=== PATIENT | female | born 1935 | race Caucasian/White ===

== ENCOUNTER → 2016-06-17 16:39 | Outpatient (CLI) | payer MEDICARE, OTHER ==
[2014-04-06 08:10] VITALS: BMI 35.3
[~2016-06-17 16:39] MED LIST: AMBIEN10 MG PO; ANTIOXIDENT; BAYER CHEWABLE81 MG PO; BENADRYL25 MG PO; BETAPACE 80 MG80 MG PO; BIOTIN5 MG PO; CALTRATE-600600 MG PO; COUMADIN5 MG PO; COUMADIN7.5 MG; ENDOCET 10-3251 TAB PO; FEMARA2.5 MG PO; FOLIC ACID1 MG; FOLIC ACID1 MG PO; GLUCAGON1 MG/KIT IM; GLUCAGON1 MG/KIT SQ; GLUCOPHAGE500 MG PO; HUMALOG 30100 UNITS/; HUMALOG 30100 UNITS/ SC; HUMALOG MIX 50/53 ML SQ; INSTA-GLUCOSE31 GM PO; LANTUS SOL100 UNIT/1; LANTUS SOL100 UNIT/1 SC; LANTUS SOL100 UNIT/1 SQ; LASIX40 MG PO; METHOTREXATE2.5 MG PO; MILK OF MAGNESI30 ML PO; MIRALAX17 GM PO; MIRAPEX0.5 MG PO; NORVASC5 MG PO; NYSTATIN60 GM TP; OSCIMIN0.125 M1 PO; PEPCID20 MG PO; PRAVACHOL40 MG PO; PREDNISONE1 MG; PREDNISONE1 MG PO; PRINIVIL20 MG PO; SALINE FLUSH10 ML IV; STERAPRED 5MG 125 MG PO; SYNTHROID150 MCG PO; SYNTHROID25 MCG PO; TYLENOL 8 HOUR650 MG PO; VITAMIN D31000 UNI2 PO; VYTORIN 10-20 M1 TAB; VYTORIN 10-20 M1 TAB PO; ZOFRAN4 MG PO; ZYLOPRIM100 MG PO; ZYLOPRIM300 MG PO; [UNRECOGNIZED DRUG - OTHER]
== END | disposition home or self-care (01) ==
LOC: D.MAMMO 05-28 15:15
DX: Z85.3 Personal history of malignant neoplasm of breast (principal)

== ENCOUNTER 2016-06-25 06:02 | Outpatient (CLI) | payer MEDICARE, OTHER ==
[~2016-06-25] VITALS: Ht 161.3 cm; Wt 89.4 kg
[2016-06-25 04:32] LABS: BASOPHILS 0 % (0.0-2.0); EOSINOPHILS 1.4 % (0-7); HEMATOCRIT 43.6 % (36.0-48.0); HEMOGLOBIN 14.3 g/dL (12-16); IMMATURE GRANULOCYTES 0.3 % (0-5); LYMPHOCYTES 2.5 % (15-50); MCH 32.9 pg (26.0-34.0); MCHC 32.8 g/dL (31.0-37.0); MCV 100.2 fL (80.0-100.0); MEAN PLATELET VOLUME 10.1 fL (7.4-10.4); MONOCYTES 4.5 % (2-11); NEUTROPHILS 91.3 % (40-80); PLATELET COUNT 243 10x3/uL (130-400); RBC 4.35 10x6/uL (4.00-5.40); RDW 16.7 % (11.5-14.5); WBC 8.9 10x3/uL (4.8-10.8)
[2016-06-25 04:53] LABS: ALBUMIN 3.8 g/dL (3.4-5.0); ANION GAP 15.6 mmol/L (8-16); BILIRUBIN - TOTAL 0.7 mg/dL (0.2-1.3); CALCIUM 9.6 mg/dL (8.5-10.1); CARBON DIOXIDE 26.1 mmol/L (21.0-32.0); CREATININE - SERUM 1.7 mg/dL (0.6-1.3); POTASSIUM - SERUM 4.7 mmol/L (3.5-5.1); PROTEIN - SERUM 7.4 g/dL (6.4-8.2)
[~2016-06-25 06:02] MED LIST changes: -AMBIEN10 MG PO; -FEMARA2.5 MG PO; -MIRALAX17 GM PO; -MIRAPEX0.5 MG PO; -PRAVACHOL40 MG PO; -SYNTHROID150 MCG PO; -ZYLOPRIM300 MG PO
[2016-06-25 06:35] LABS: INR 1.61 (0.85-1.17)
[2016-06-25 06:36] LABS: PROTIME 19.1 SECONDS (11.6-15.0)
[2016-06-25] MEDS ORDERED: PREDNISONE1 MG PO (08:05)
[2016-06-25] MEDS ORDERED: SYNTHROID150 MCG PO (08:07)
[2016-06-25] MEDS ORDERED: PRAVACHOL40 MG PO ×2 (08:09)
[2016-06-25] MEDS ORDERED: ZYLOPRIM300 MG PO (08:10)
[2016-06-25] MEDS ORDERED: FEMARA2.5 MG PO (08:10)
[2016-06-25] MEDS ORDERED: MIRALAX17 GM PO (08:15)
[2016-06-25] MEDS ORDERED: AMBIEN10 MG PO (08:17)
[2016-06-25 08:20] VITALS: BP 86/41
[2016-06-25 09:11] VITALS: BP 86/41; BMI 34.4
[2016-06-25 11:04] VITALS: Ht 161.3 cm; Wt 89.4 kg
[2016-06-25 12:07] VITALS: BP 118/93
[2016-06-25 16:07] VITALS: BP 88/50
[2016-06-25 19:00] VITALS: BP 91/52
--- NOTE | 2016-06-25 19:48 | NUR ---
ASSESSMENT COMPLETE, RESTING ON LEFT SIDE. RESPERATIONS EVEN AND UNLABORED. IV TO RIGHT HAND WITH NS INFUSING AT 125. PT DENIES PAIN OR NEEDS, BED LOW, CL IN REACH.
[2016-06-25] MEDS ORDERED: MIRAPEX0.5 MG PO (20:28)
--- NOTE | 2016-06-25 21:03 | NUR ---
SPOKE WITH DR RODGERS, ASKED IF PT CAN CONTINUE HER HOME MEDICATION OF MIRAPEX. ORDERS GIVEN TO CONTINUE MIRAPEX 0.5 MG AT HS. 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 NO ORDERS GIVEN TO CHANGE IV FLUIDS, BUT DR RODGERS STATED THAT HE WILL RECHECK LABS IN THE MORNING.
--- NOTE | 2016-06-25 22:22 | NUR ---
PT ROUNDED ON NO DISTRESS OBSERVED CALL LIGHT IN REACH SRX2 BED LOW AND LOCKED CALL LIGHT IN REACH SRX2 WILL MONITOR
--- NOTE | 2016-06-25 22:36 | NUR ---
HS MEDS GIVEN, UP WITH ASSIST TO BR. URINE SPECIMINE COLLECTED AND TAKEN TO LAB. REPOSITINED IN BED FOR COMFORT. WILL CONT TO MONITOR.
[2016-06-25 22:49] LABS: APPEARANCE CLEAR (CLEAR); BILIRUBIN NEGATIVE (NEGATIVE); COLOR YELLOW (YELLOW); GLUCOSE NEGATIVE (NEGATIVE); KETONE NEGATIVE (NEGATIVE); LEUKOCYTE ESTERASE NEGATIVE (NEGATIVE); NITRITE NEGATIVE (NEGATIVE); PROTEIN NEGATIVE (NEGATIVE); SPECIFIC GRAVITY 1.015 (1.005-1.020); UROBILINOGEN NORMAL (NORMAL)
[2016-06-26] VITALS: BP 94/55
--- NOTE | 2016-06-26 02:22 | NUR ---
RESTING WITH EYES CLOSED, RESPERATIONS EVEN, NO S/S DISTRESS NOTED.
[2016-06-26 04:00] VITALS: BP 96/60
--- NOTE | 2016-06-26 04:36 | NUR ---
UP WITH ASSIST TO BR.
[2016-06-26 05:12] LABS: BASOPHILS 0.2 % (0.0-2.0); EOSINOPHILS 0 % (0-7); HEMATOCRIT 34.9 % (36.0-48.0); IMMATURE GRANULOCYTES 0.2 % (0-5); LYMPHOCYTES 7.3 % (15-50); MCH 32.3 pg (26.0-34.0); MCHC 32.1 g/dL (31.0-37.0); MCV 100.6 fL (80.0-100.0); MEAN PLATELET VOLUME 9.5 fL (7.4-10.4); MONOCYTES 5.9 % (2-11); NEUTROPHILS 86.4 % (40-80); RDW 17.1 % (11.5-14.5)
[2016-06-26 05:17] LABS: HEMOGLOBIN 11.2 g/dL (12-16); PLATELET COUNT 181 10x3/uL (130-400); RBC 3.47 10x6/uL (4.00-5.40); WBC 5.6 10x3/uL (4.8-10.8)
[2016-06-26 05:26] LABS: ANION GAP 13.4 mmol/L (8-16); CALCIUM 7.8 mg/dL (8.5-10.1); CARBON DIOXIDE 22.4 mmol/L (21.0-32.0); CREATININE - SERUM 1.5 mg/dL (0.6-1.3); MAGNESIUM - SERUM 1.6 mg/dL (1.8-2.4)
[2016-06-26 05:31] LABS: POTASSIUM - SERUM 3.8 mmol/L (3.5-5.1)
[2016-06-26 05:39] LABS: INR 2.28 (0.85-1.17); PROTIME 25.3 SECONDS (11.6-15.0)
[2016-06-26 07:48] VITALS: BP 103/60
--- NOTE | 2016-06-26 08:59 | NUR ---
PT IS ALERT. ASSESSMENT DONE PER FLOWSHEET. NO OTHER NEEDS AT THIS TIME. WILL CONTINUE TO MONTIOR.
--- NOTE | 2016-06-26 09:33 | NUR ---
Patient Name: KAY LOZOYA Admission Status: ER Accout number: [id number] Admission Date: 06-25-2016 : 1935 Admission Diagnosis: Attending: [facility] Current LOS: 1 Anticipated DC Date: 06-26-2016 Planned Disposition: Home Primary Insurance: MEDICARE A & B Discharge Planning Comments: * Is the patient Alert and Oriented? Yes 0 * How many steps to enter\exit or inside your home? ELEVATOR 0 * PCP DR. MOON 0 * Pharmacy [facility] 0 * Preadmission Environment Home with Family 0 * ADLs Independent 0 * Equipment Walker 0 * Other Equipment NO MEDICAL EQUIPMENT PROVIDER PREFERENCE 0 * List name and contact numbers for known caregivers / representatives who currently or will assist patient after discharge: DR. VLADIMIR TORRES, DTR, 0 * Community resources currently utilized None 0 * Please name any agencies selected above. NONE 0 * Additional services required to return to the preadmission environment? No 0 * Can the patient safely return to the preadmission environment? Yes 0 * Has this patient been hospitalized within the prior 30 days at any hospital? No 0 CM MET WITH PT IN ROOM TO DISCUSS DISCHARGE PLANNING AND NEEDS. PT REPORTS LIVING AT HOME INDEPENDENTLY WITH SPOUSE IN HOME OF ADULT DAUGHTER. PT HAS A WALKER AND NO MEDICAL EQUIPMENT PROVIDER PREFERENCE. PT HAS NO OUTSIDE SERVICES ASSISTING IN THE HOME. CM DISCUSSED AVAILABILITY OF HOME HEALTH, REHAB SERVICES AND MEDICAL EQUIPMENT. PT DENIES DISCHARGE NEEDS, REPORTS HER DAUGHTER WILL PICK HER UP FOR DISCHARGE HOME. IMPORTANT MESSAGE FROM MEDICARE PROVIDED AND EXPLAINED. Electric Engine Mechanic: Canelo Jaeger
--- NOTE | 2016-07-09 17:39 | HP ---
PATIENT: KAY LOZOYA MEDICAL RECORD: [id number] ACCOUNT: [id number] LOCATION:[facility] : 33 ADMISSION DATE: 06/25/16 HISTORY AND PHYSICAL EXAMINATION DATE OF ADMISSION: 06/25/2016 CHIEF COMPLAINT: Nausea and vomiting. HISTORY OF PRESENT ILLNESS: The patient is an 80-year-old female whose apparently was sick and Friday. He had nausea and vomiting that soon resolved. The patient states she began having nausea yesterday, had numerous episodes of nausea, vomiting, diarrhea throughout the night, presented to the Emergency Room where she was found to be somewhat dehydrated and we felt the patient should be admitted. PAST MEDICAL HISTORY: Her past history is significant that she has had lumbar radiculopathy. She has also had gastroesophageal reflux, arthritis in the knees, and postmenopausal syndrome. 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 PAST SURGICAL HISTORY: She has had a left lumpectomy secondary to breast cancer. She has had right knee replacement, cataract surgery in 2008, total hip resurfacing of the right hip. She has had a cholecystectomy, partial thyroidectomy, hemorrhoidectomy, and hysterectomy. FAMILY HISTORY: Mother had malignant neoplasm, type unknown. Brother had liver cancer. Mother also had a cerebrovascular accident. Father had COPD. MEDICATIONS: Include Coumadin 5 mg 1 p.o. q. day, vitamin D 50,000 units weekly, tizanidine 4 mg, sotalol 80 mg p.o. b.i.d., prednisone 3 mg p.o. q. day, pravastatin 40 mg once a day, Mirapex 0.25, one p.o. q.h.s., Pepcid 20 mg p.o. b.i.d., oxycodone 10/325, one p.o. t.i.d., MiraLax p.r.n., methotrexate 2.5, five tablets every Friday, lisinopril 20 mg, 1 p.o. b.i.d., levothyroxine 150 mcg once a day, Lotronex 2.5 mg daily, Lantus SoloSTAR 100 units per mL, 20 units q.h.s. She is on Humalog sliding scale as well. Lasix 40 mg, 1 p.o. q. day, folic acid 1 mg once a day, aspirin 81 mg once a day., Ambien 10 mg p.o. q.h.s. p.r.n. insomnia, and allopurinol 300 mg, 1 p.o. q. day. ALLERGIES: CEFTIN. HABITS: Nonsmoker, nondrinker. 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 She is . She denies any ethanol, tobacco use or abuse. REVIEW OF SYSTEMS: CONSTITUTIONAL: She denies any headaches, seizure or syncope. Denied change in visual or auditory acuity. PULMONARY: She denies shortness of breath, cough, congestion, history of asthma or bronchitis. CARDIOVASCULAR: No chest pain, palpitation, PND, or orthopnea. GASTROINTESTINAL: As stated above. GENITOURINARY: No urgency, frequency, or dysuria. HISTORY AND PHYSICAL [id number] DARELLKAY RENO PHYSICAL EXAMINATION: GENERAL: Well-nourished, well-developed female, who is acutely ill. VITAL SIGNS: Her temperature was 100.6, her respirations were 19, her pulse was 87 and her blood pressure 106/63, and O2 sat 97%. HEENT: Her head is normocephalic. No lesions. Ears: TMs clear. Eyes: Pupils equal, round and reactive to light. Extraocular movements intact. Nasal cavity, oral cavity, oropharynx clear. NECK: Supple. There is no adenopathy. HEART: Has a regular rhythm. No murmurs, gallops or rubs. LUNGS: Clear. ABDOMEN: Soft. Bowel sounds are positive. No organomegaly. EXTREMITIES: Upper and lower extremities have good strength, good range of motion. LABORATORY DATA: The patient initially had a white count 8.9, hemoglobin 14.3, hematocrit 43.6, and her platelets were 243. She had a sodium 136, potassium 4.7, chloride is 99, BUN is 35, creatinine 1.7, and glucose of 171. Amylase and lipase were all normal. Urinalysis canceled. INR 1.16. ASSESSMENT: 1. Probable gastroenteritis with nausea and vomiting. 2. Mild dehydration. 3. Hypothyroidism. 4. History of Guillain-[place]. 5. Polymyalgia rheumatica, history of breast cancer, diabetes mellitus, and hypertension. PLAN: The patient will be admitted, given IV hydration as well as antiemetics, continue all of her current medication. We will check stool for CDT, repeat CBC, BMP and INR in the a.m. TRANSINT:[id number] Voice Confirmation ID: [id number] DOCUMENT ID: [id number] JOSUE MOON MD at 1739 CC: [id number] DICTATION DATE: 06/25/16740 CYBER REVERSE ENGINEER: 06/25/16 0836 DEP CLI 06/26/[address] [address]
--- NOTE | 2016-07-15 07:19 | DS ---
PATIENT:KAY LOZOYA :[birth year] MEDICAL RECORD: [id number] DISCHARGE SUMMARY ADMISSION DATE: 06/25/16 DISCHARGE DATE: 06/26/16 DATE OF ADMISSION: 06/25/2016 DATE OF DISCHARGE: 06/26/2016 CONDITION ON DISCHARGE: Improved. ADMITTING DIAGNOSES: Gastroenteritis with nausea, vomiting, mild dehydration, hypothyroidism, history of Guillain-[place] fibromyalgia rheumatica, history of breast cancer, diabetes, and hypertension. DISCHARGE DIAGNOSES: Gastroenteritis with nausea, vomiting, mild dehydration, hypothyroidism, history of Guillain-[place] fibromyalgia rheumatica, history of breast cancer, diabetes, and hypertension. HOSPITAL COURSE: An 80-year-old female who apparently became ill, having nausea and vomiting. The day prior to her admission, she states that she has had numerous episodes of diarrhea as well as vomiting and presented to the Emergency Room where it felt the patient was acutely ill and in need of hospitalization. PHYSICAL EXAMINATION: VITAL SIGNS: She had a temperature of 100.6, respirations 19. Her pulse was 87, blood pressure is 106/63, O2 sat was 97. HEENT: Normal. NECK: Supple. There is no adenopathy. HEART: Had regular rhythm. No murmurs, gallops or rubs. LUNGS: Clear. ABDOMEN: Soft, nontender. LABORATORY DATA: White count was 8.9, hemoglobin 14.3, hematocrit 43.6, platelets 243. Sodium 136, potassium 4.7, chloride 99, BUN is 35, creatinine 1.7. Glucose elevated at 171, amylase and lipase normal. Urinalysis unremarkable. The patient was admitted started on antiemetics, she had stool for CDT, which was negative. On the 1st, the patient's white blood cell count was 5.6, hemoglobin 11.2, hematocrit 34.9, her platelets were 181. Her BUN was 36, creatinine was 1.5, sodium 136, potassium 3.8, chloride 101, CO2 was 22. The patient was totally asymptomatic, felt to be ready for discharge. Therefore, the patient was discharged. DISCHARGE MEDICATIONS: Included 5 mg of Coumadin daily, vitamin D 50,000 units weekly, tizanidine 4 mg q.8 hours, sotalol 80 mg p.o. b.i.d., prednisone 3 mg 1 p.o. q. day, pravastatin 40 mg once a day, Mirapex 0.125 p.o. q.h.s., ____ p.o. b.i.d., oxycodone 10/325 one every 8 hours p.r.n. severe pain, MiraLax p.r.n., methotrexate 2.5 five every Friday, lisinopril 20 mg p.o. b.i.d., levothyroxine 150 mcg q. day, Lotronex 2.5 daily, Lantus 20 units subQ daily using a Humalog sliding scale, Lasix 40 mg once a day, folic acid 1 mg once a day, aspirin 81 mg once a day, Ambien 10 mg p.o. q.h.s. p.r.n. insomnia, allopurinol 300 mg p.o. q. day. DISCHARGE INSTRUCTIONS: The patient was advised slowly to return to a normal diet. She would follow up with me in approximately 1 week. DISCHARGE SUMMARY REPORT [id number] KAY LOZOYA ACTIVITIES: Ad isabel. TRANSINT:[id number] Voice Confirmation ID: [id number] DOCUMENT ID: [id number] JOSUE MOON MD at 0719 CC: [id number] DICTATION DATE: 07/14/16 1155 DRIVER'S LICENSE REVIEWING OFFICER: 07/14/162011 DEP CLI 06/26/16 [facility] [address] [place] [address]
== END 2016-06-26 11:11 | disposition home or self-care (01) ==
LOC: OBSVTIME → D.ER 06:02 → D.M2 06:02 → OBSVTIME 06:02 → D.M2 06:02 → D.OPS 06:02 → D.M2 11:34 → EDSTATUS 13:39 → D.M2 06-26 11:11 → D.OPS 06-26 11:11
PROVIDERS: Emergency Medicine; Family Medicine
DX: E86.0 Dehydration (principal); K52.9 Noninfective gastroenteritis and colitis, unspecified; E03.9 Hypothyroidism, unspecified; I10 Essential (primary) hypertension; K21.9 Gastro-esophageal reflux disease without esophagitis; M35.3 Polymyalgia rheumatica; E11.43 Type 2 diabetes mellitus with diabetic autonomic (poly)neuropathy; Z79.4 Long term (current) use of insulin; M17.9 Osteoarthritis of knee, unspecified; Z85.3 Personal history of malignant neoplasm of breast; Z79.01 Long term (current) use of anticoagulants; Z78.0 Asymptomatic menopausal state

== ENCOUNTER → 2016-12-06 14:03 | Outpatient (CLI) | payer MEDICARE, OTHER ==
[2016-06-25 11:04] VITALS: BMI 34.3
[~2016-12-06 14:03] MED LIST changes: +AMBIEN10 MG PO; +FEMARA2.5 MG PO; +MIRALAX17 GM PO; +MIRAPEX0.5 MG PO; +PRAVACHOL40 MG PO; +SYNTHROID150 MCG PO; +ZYLOPRIM300 MG PO
== END | disposition home or self-care (01) ==
LOC: D.RAD 12:24
DX: M25.512 Pain in left shoulder (principal)

== ENCOUNTER 2017-03-22 08:52 | Emergency (ER) | payer MEDICARE, OTHER ==
[2016-06-25 11:04] VITALS: BMI 34.3
[2017-03-22 09:50] LABS: BASOPHILS 0.2 % (0-2); EOSINOPHILS 1.3 % (0-7); HEMOGLOBIN 12.1 g/dL (12-16); IMMATURE GRANULOCYTES 0.4 % (0-5); LYMPHOCYTES 10.5 % (15-50); MCH 32.9 pg (26.0-34.0); MCHC 32.7 g/dL (31.0-37.0); MCV 100.5 fL (80.0-100.0); MEAN PLATELET VOLUME 9.3 fL (7.4-10.4); MONOCYTES 10.7 % (2-11); NEUTROPHILS 76.9 % (40-80); PLATELET COUNT 236 10x3/uL (130-400); RBC 3.68 10x6/uL (4.00-5.40); RDW 16.8 % (11.5-14.5); WBC 10.7 10x3/uL (4.8-10.8)
== END 2017-03-22 11:27 | disposition home or self-care (01) ==
LOC: D.ER 08:52
PROVIDERS: Emergency Medicine
DX: M79.672 Pain in left foot (principal); M25.572 Pain in left ankle and joints of left foot; Z85.3 Personal history of malignant neoplasm of breast; G61.0 Guillain-Barre syndrome; I10 Essential (primary) hypertension; E11.9 Type 2 diabetes mellitus without complications

== ENCOUNTER → 2017-04-22 10:17 | Outpatient (CLI) | payer MEDICARE, OTHER ==
[2016-06-25 11:04] VITALS: BMI 34.3
== END | disposition home or self-care (01) ==
LOC: D.US 10:17
DX: S81.802A Unspecified open wound, left lower leg, initial encounter (principal); M79.605 Pain in left leg

== ENCOUNTER → 2017-05-05 08:36 | Outpatient (CLI) | payer MEDICARE, OTHER ==
[2016-06-25 11:04] VITALS: BMI 34.3
[2017-05-05 10:11] LABS: CREATININE - SERUM 1.2 mg/dL (0.6-1.3)
== END | disposition home or self-care (01) ==
LOC: D.CT 08:36 → D.OPS 09:00 → D.CT 05-07 08:00 → D.OPS 05-07 08:00
PROVIDERS: Orthopaedic Surgery
DX: S81.802A Unspecified open wound, left lower leg, initial encounter (principal)

== ENCOUNTER → 2017-06-18 10:30 | Outpatient (CLI) | payer MEDICARE, OTHER ==
[2016-06-25 11:04] VITALS: BMI 34.3
== END ==
LOC: D.MAMMO 05-22 11:30
DX: Z85.3 Personal history of malignant neoplasm of breast (principal); Z12.31 Encounter for screening mammogram for malignant neoplasm of breast

== ENCOUNTER → 2017-07-28 19:58 | Outpatient (CLI) | payer MEDICARE, OTHER ==
[2016-06-25 11:04] VITALS: BMI 34.3
[~2017-07-28 19:58] MED LIST changes: +AMBIEN5 MG PO; +ANTIOXIDENT PO; +MIRAPEX0.125 MG PO; +VITAMIN D250000 UNIT PO; +ZITHROMAX250 MG PO
[2017-07-28 20:28] LABS: APTT 21.6 SECONDS (22.8-39.4)
[2017-07-28 20:29] LABS: INR 1.68 (0.85-1.17); PROTIME 19.2 SECONDS (11.6-15.0)
== END | disposition home or self-care (01) ==
LOC: D.LABREF 19:58
PROVIDERS: Specialist
DX: I48.91 Unspecified atrial fibrillation (principal)

== ENCOUNTER 2017-08-10 04:47 | Inpatient (IN) | payer MEDICARE, OTHER ==
[~2017-08-10] VITALS: Ht 154.9 cm; Wt 97.1 kg
[2017-08-10] VITALS (54 sets, daily range): BP systolic 78–132; BP diastolic 36–76; BMI 41.2
--- NOTE | ~2017-08-10 | EC ---
PATIENT:KAY LOZOYA DATE OF SERVICE: 08/10/17 SEX: F MEDICAL RECORD: [id number] DATE OF : [birth year] LOCATION:[facility] AGE OF PATIENT: 81 ADMISSION DATE: 08/10/17 REFERRING PHYSICIAN: INTERPRETING PHYSICIAN: WILNER KILPATRICK MD ECHOCARDIOGRAM REPORT ECHO CHARGES 4 ECHO COMPLETE DATE: CLINICAL DIAGNOSIS: SOB ECHOCARDIOGRAPHIC MEASUREMENTS (adult normal given) AC root (d.<3.7cm) 4.1 cm LV Septum d (<1.2 cm> 1.7 cm Valve Excursion 1.9 cm LV Septum (systole) 2.1 cm Left Atria (s.<4.0cm> 3.8 cm LVPW d(<1.2cm) 1.5 cm RV (d.<2.3cm) 3.2 cm LVPW (sytole) 2.4 cm LV diastole(<5.6CM) 4.2 cm MV E-F(>70mm/sec) cm LV systole 2.4 cm LVOT Diameter 1.8 cm MV exc.(>10mm) 0.90 cm Est.ejection fraction (50-75%) % DOPPLER: LVIT cm/sec A 81.0 cm/sec E 95.0 cm/sec LA cm/sec RVSP 32 mmHg LVOT 142 cm/sec AOP1/2T m/s Asc. Ao 242 cm/sec RVOT 122 cm/sec RA cm/sec PA 179 cm/sec AV Gradient Peak 28.76mmHg AV Mean 19.03mmHg AV Area 1.6 cm MV Gradient Peak 4.97 mmHg MV Mean 1.83 mmHg MV Area cm COMMENTS: Supervisor Film Processing: Clyde HICKS Supervisor Nurse: [address] Dr. Kilpatrick TAPE# PACS Pericardial Effusion N DATE OF SERVICE: 08/10/2017 PROCEDURE: Echocardiogram. FINDINGS: 1. Left ventricle chamber size is within normal limits. Left ventricular systolic function is normal. Overall ejection fraction estimated at 60%. 2. Left atrium is within normal limits at 3.8 cm. Right atrium and right ventricular chamber sizes are mildly dilated. 3. 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 Valve area calculates to 1.6 cm. Pressure gradient of 28 mm across the valve. The remaining valvular structures have normal structure and motion. 4. Doppler interrogation elsewise reveals mild mitral regurgitation, mild tricuspid regurgitation, no other valvular insufficiency or stenosis and pulmonary systolic pressure is estimated 32 mmHg. 5. No evidence of pericardial effusion or left ventricular thrombus. TRANSINT:[id number] Voice Confirmation ID: [id number] DOCUMENT ID: [id number] WILNER KILPATRICK MD at 1140 CC: [id number] DICTATION DATE: 08/11/17 1252 FPGA ENGINEER: 08/11/17 1300 DIS IN 08/13/17 [facility] [address] [place] [address]
[~2017-08-10 04:47] MED LIST changes: -AMBIEN5 MG PO; -ANTIOXIDENT PO; -MIRAPEX0.125 MG PO; -VITAMIN D250000 UNIT PO; -ZITHROMAX250 MG PO
[2017-08-10 05:27] LABS: BASOPHILS 0.1 % (0-2); EOSINOPHILS 0.5 % (0-7); HEMATOCRIT 35.9 % (36.0-48.0); HEMOGLOBIN 11.6 g/dL (12-16); IMMATURE GRANULOCYTES 0.3 % (0-5); LYMPHOCYTES 6.4 % (15-50); MCH 31.7 pg (26.0-34.0); MCHC 32.3 g/dL (31.0-37.0); MCV 98.1 fL (80.0-100.0); MEAN PLATELET VOLUME 9.7 fL (7.4-10.4); MONOCYTES 2.5 % (2-11); NEUTROPHILS 90.2 % (40-80); PLATELET COUNT 235 10x3/uL (130-400); RBC 3.66 10x6/uL (4.00-5.40); RDW 17.9 % (11.5-14.5); WBC 11.5 10x3/uL (4.8-10.8)
[2017-08-10 05:53] LABS: ALBUMIN 3.1 g/dL (3.4-5.0); ALT (SGPT) 23 U/L (10-68); BILIRUBIN - TOTAL 0.36 mg/dL (0.2-1.3); CALCIUM 9.2 mg/dL (8.5-10.1); CARBON DIOXIDE 27.7 mmol/L (21.0-32.0); CHLORIDE - SERUM 96 mmol/L (98-107); CKMB 1.1 U/L (0.0-3.6); CREATINE KINASE 78 UL (21-215); CREATININE - SERUM 1.4 mg/dL (0.6-1.3); MAGNESIUM - SERUM 1.9 mg/dL (1.8-2.4); PRO BNP 696 pg/mL (0-450); PROTEIN - SERUM 6.9 g/dL (6.4-8.2); SODIUM 133 mmol/L (136-145); UREA NITROGEN 39 mg/dL (7-18); eGFR NON AFRICAN AMERICAN 38 mL/min (90-120)
[2017-08-10 05:57] LABS: CALC OSMOLALITY 274 mosm/kg (275-300); GLUCOSE 98 mg/dL (74-106); TROPONIN-I < 0.017 ng/mL (0.000-0.060)
[2017-08-10 06:21] LABS: ALKALINE PHOSPHATASE 76 U/L (46-116)
[2017-08-10 07:39] LABS: APTT 35.6 SECONDS (22.8-39.4); INR 2.49 (0.85-1.17); PROTIME 26.3 SECONDS (11.6-15.0)
[2017-08-10] MEDS ORDERED: AMBIEN5 MG PO (08:59)
[2017-08-10] MEDS ORDERED: COUMADIN5 MG PO (09:02)
[2017-08-10] MEDS ORDERED: ENDOCET 10-3251 TAB PO (09:03)
[2017-08-10] MEDS ORDERED: LASIX40 MG PO (09:25)
[2017-08-10] MEDS ORDERED: MIRAPEX0.125 MG PO (09:28)
[2017-08-10] MEDS ORDERED: VITAMIN D250000 UNIT PO (09:33)
[2017-08-10] MEDS ORDERED: ANTIOXIDENT PO (09:35)
[2017-08-10 10:50] LABS: APPEARANCE CLEAR (CLEAR); BILIRUBIN NEGATIVE (NEGATIVE); COLOR YELLOW (YELLOW); GLUCOSE NEGATIVE (NEGATIVE); KETONE NEGATIVE (NEGATIVE); NITRITE NEGATIVE (NEGATIVE); PROTEIN NEGATIVE (NEGATIVE); SPECIFIC GRAVITY 1.015 (1.005-1.020); UROBILINOGEN NORMAL (NORMAL)
[2017-08-10 10:55] LABS: POTASSIUM - URINE 58.8 MMOL/L (12.0-62.0)
[2017-08-10] MEDS ORDERED: METHOTREXATE2.5 MG PO (11:09)
[2017-08-11] VITALS (39 sets, daily range): BP systolic 104–164; BP diastolic 42–93
[2017-08-11 04:10] LABS: BASOPHILS 0 % (0-2); EOSINOPHILS 0 % (0-7); HEMATOCRIT 32.3 % (36.0-48.0); HEMOGLOBIN 10.4 g/dL (12-16); IMMATURE GRANULOCYTES 0.2 % (0-5); LYMPHOCYTES 3.3 % (15-50); MCH 31.4 pg (26.0-34.0); MCHC 32.2 g/dL (31.0-37.0); MCV 97.6 fL (80.0-100.0); MEAN PLATELET VOLUME 9.8 fL (7.4-10.4); MONOCYTES 4.6 % (2-11); NEUTROPHILS 91.9 % (40-80); PLATELET COUNT 210 10x3/uL (130-400); RBC 3.31 10x6/uL (4.00-5.40); RDW 18.4 % (11.5-14.5); WBC 20.2 10x3/uL (4.8-10.8)
[2017-08-11 04:40] LABS: % SATURATION 8 % (15-55); IRON 24 ug/dl (35-150); TOTAL IRON BIND CAPACITY 272 ug/dl (260-445); UNSAT IRON BIND CAPACITY 248 ug/dl (150-375)
[2017-08-11 04:42] LABS: ALBUMIN 2.6 g/dL (3.4-5.0); ANION GAP 13.4 mmol/L (8-16); BILIRUBIN - TOTAL 0.58 mg/dL (0.2-1.3); CALCIUM 9.4 mg/dL (8.5-10.1); CARBON DIOXIDE 26.2 mmol/L (21.0-32.0); CREATININE - SERUM 1.3 mg/dL (0.6-1.3); PHOSPHOROUS 3.2 mg/dL (2.5-4.9); POTASSIUM - SERUM 4.6 mmol/L (3.5-5.1); PROTEIN - SERUM 6.4 g/dL (6.4-8.2); VANCOMYCIN - RANDOM 5.7 ug/mL (10.0-20.0)
[2017-08-11 04:57] LABS: MAGNESIUM - SERUM 2.4 mg/dL (1.8-2.4)
[2017-08-12] VITALS (13 sets, daily range): BP systolic 108–166; BP diastolic 56–89; Ht 154.9 cm; Wt 97.1 kg
[2017-08-12 05:10] LABS: BASOPHILS 0.1 % (0-2); EOSINOPHILS 0.1 % (0-7); HEMATOCRIT 32.3 % (36.0-48.0); HEMOGLOBIN 10.2 g/dL (12-16); IMMATURE GRANULOCYTES 0.4 % (0-5); LYMPHOCYTES 6.2 % (15-50); MCH 31.2 pg (26.0-34.0); MCHC 31.6 g/dL (31.0-37.0); MCV 98.8 fL (80.0-100.0); MONOCYTES 3.7 % (2-11); NEUTROPHILS 89.5 % (40-80); PLATELET COUNT 226 10x3/uL (130-400); RBC 3.27 10x6/uL (4.00-5.40); RDW 18.5 % (11.5-14.5)
[2017-08-12 05:15] LABS: WBC 14.3 10x3/uL (4.8-10.8)
[2017-08-12 05:30] LABS: ANION GAP 9.3 mmol/L (8-16); CALCIUM 9.2 mg/dL (8.5-10.1); CREATININE - SERUM 1.1 mg/dL (0.6-1.3); MAGNESIUM - SERUM 2.2 mg/dL (1.8-2.4); POTASSIUM - SERUM 4.3 mmol/L (3.5-5.1); VANCOMYCIN - RANDOM 9.1 ug/mL (10.0-20.0)
[2017-08-13 00:23] VITALS: BP 160/88
[2017-08-13 05:17] LABS: BASOPHILS 0.2 % (0-2); EOSINOPHILS 2.1 % (0-7); HEMATOCRIT 30.6 % (36.0-48.0); HEMOGLOBIN 9.7 g/dL (12-16); IMMATURE GRANULOCYTES 0.4 % (0-5); LYMPHOCYTES 11.3 % (15-50); MCH 31.6 pg (26.0-34.0); MCHC 31.7 g/dL (31.0-37.0); MCV 99.7 fL (80.0-100.0); MONOCYTES 7.1 % (2-11); NEUTROPHILS 78.9 % (40-80); PLATELET COUNT 229 10x3/uL (130-400); RBC 3.07 10x6/uL (4.00-5.40); RDW 18.4 % (11.5-14.5); WBC 9.2 10x3/uL (4.8-10.8)
[2017-08-13 05:27] LABS: INR 1.18 (0.85-1.17); PROTIME 14.6 SECONDS (11.6-15.0)
[2017-08-13 05:32] LABS: ANION GAP 12.6 mmol/L (8-16); CALCIUM 8.6 mg/dL (8.5-10.1); CARBON DIOXIDE 27.1 mmol/L (21.0-32.0); CREATININE - SERUM 0.9 mg/dL (0.6-1.3); MAGNESIUM - SERUM 1.9 mg/dL (1.8-2.4); PHOSPHOROUS 3.2 mg/dL (2.5-4.9); POTASSIUM - SERUM 4.7 mmol/L (3.5-5.1); VANCOMYCIN - RANDOM 4.1 ug/mL (10.0-20.0)
[2017-08-13] MEDS ORDERED: ZITHROMAX250 MG PO (07:12)
[2017-08-13 08:30] VITALS: BP 120/66
== END 2017-08-13 14:12 | disposition home or self-care (01) | DRG 871 ==
LOC: D.ER 04:47 → D.EDHOLD 05:35 → D.CVICU 05:35 → D.MS 08-12 12:36
PROVIDERS: Emergency Medicine; Internal Medicine Pulmonary Disease
DX: A41.9 Sepsis, unspecified organism (principal); R65.21 Severe sepsis with septic shock; J18.9 Pneumonia, unspecified organism; J96.21 Acute and chronic respiratory failure with hypoxia; N17.9 Acute kidney failure, unspecified; G61.0 Guillain-Barre syndrome; E87.1 Hypo-osmolality and hyponatremia; J90 Pleural effusion, not elsewhere classified; J80 Acute respiratory distress syndrome; E11.22 Type 2 diabetes mellitus with diabetic chronic kidney disease; I12.9 Hypertensive chronic kidney disease with stage 1 through stage 4 chronic kidney disease, or unspecified chronic kidney disease; N18.3 Chronic kidney disease, stage 3 (moderate); E11.21 Type 2 diabetes mellitus with diabetic nephropathy; E11.65 Type 2 diabetes mellitus with hyperglycemia; Z79.4 Long term (current) use of insulin; E11.40 Type 2 diabetes mellitus with diabetic neuropathy, unspecified; K21.9 Gastro-esophageal reflux disease without esophagitis

== ENCOUNTER → 2018-04-20 15:41 | Outpatient (CLI) | payer MEDICARE, OTHER ==
[2017-08-12 19:49] VITALS: BMI 41.0
[~2018-04-20 15:41] MED LIST changes: +AMBIEN5 MG PO; +ANTIOXIDENT PO; +MIRAPEX0.125 MG PO; +VITAMIN D250000 UNIT PO; +ZITHROMAX250 MG PO
== END | disposition home or self-care (01) ==
LOC: D.MRI 15:41
DX: M75.121 Complete rotator cuff tear or rupture of right shoulder, not specified as traumatic (principal)

== ENCOUNTER → 2018-04-24 14:15 | Outpatient (CLI) | payer MEDICARE, OTHER ==
[2017-08-12 19:49] VITALS: BMI 41.0
[2018-04-24 15:11] LABS: CREATININE - SERUM 1.2 mg/dL (0.6-1.3)
== END | disposition home or self-care (01) ==
LOC: D.CT 14:15
PROVIDERS: Internal Medicine Medical Oncology
DX: C50.312 Malignant neoplasm of lower-inner quadrant of left female breast (principal)

== ENCOUNTER 2018-06-19 15:22 | Emergency (ER) | payer MEDICARE, OTHER ==
[~2018-06-19] VITALS: Ht 154.9 cm; Wt 88.6 kg
[2018-06-19 15:50] VITALS: Ht 154.9 cm; Wt 88.6 kg
[2018-06-19] MEDS ORDERED: DONEPEZIL HCL10 MG PO (15:52)
[2018-06-19 16:19] LABS: BASOPHILS 0.4 % (0-2); EOSINOPHILS 2.5 % (0-7); HEMATOCRIT 35.4 % (36.0-48.0); HEMOGLOBIN 11.4 g/dL (12-16); IMMATURE GRANULOCYTES 0.2 % (0-5); LYMPHOCYTES 26.9 % (15-50); MCH 32.2 pg (26.0-34.0); MCHC 32.2 g/dL (31.0-37.0); MEAN PLATELET VOLUME 9.6 fL (7.4-10.4); MONOCYTES 10.7 % (2-11); NEUTROPHILS 59.3 % (40-80); RBC 3.54 10x6/uL (4.00-5.40); RDW 16.6 % (11.5-14.5); WBC 5.2 10x3/uL (4.8-10.8)
[2018-06-19 16:20] LABS: PLATELET COUNT 281 10x3/uL (130-400)
[2018-06-19 16:34] LABS: ALBUMIN 3.3 g/dL (3.4-5.0); ANION GAP 13.7 mmol/L (8-16); BILIRUBIN - TOTAL 0.3 mg/dL (0.2-1.3); CALCIUM 8.9 mg/dL (8.5-10.1); CARBON DIOXIDE 28.2 mmol/L (21.0-32.0); CREATININE - SERUM 1.2 mg/dL (0.6-1.3); MAGNESIUM - SERUM 2.2 mg/dL (1.8-2.4); POTASSIUM - SERUM 3.9 mmol/L (3.5-5.1); PROTEIN - SERUM 6.7 g/dL (6.4-8.2)
[2018-06-19 17:46] VITALS: BP 108/67
== END 2018-06-19 17:48 | disposition home or self-care (01) ==
LOC: D.ER 15:22
PROVIDERS: Family Medicine
DX: M62.838 Other muscle spasm (principal); R53.83 Other fatigue; G61.0 Guillain-Barre syndrome; E11.9 Type 2 diabetes mellitus without complications; I10 Essential (primary) hypertension; I48.91 Unspecified atrial fibrillation; Z79.01 Long term (current) use of anticoagulants

== ENCOUNTER 2018-06-29 16:27 | Emergency (ER) | payer MEDICARE, OTHER ==
[~2018-06-29] VITALS: Ht 154.9 cm; Wt 5.3 kg
[~2018-06-29 16:27] MED LIST changes: +DONEPEZIL HCL10 MG PO
[2018-06-29 17:19] VITALS: BP 148/71; Ht 154.9 cm; Wt 5.3 kg
== END 2018-06-29 18:01 | disposition left against medical advice (07) ==
LOC: D.ER 16:27
DX: M62.838 Other muscle spasm (principal)

== ENCOUNTER → 2018-07-03 20:19 | Outpatient (CLI) | payer MEDICARE, OTHER | END | disposition home or self-care (01) | LOC: D.MAMMO 11:30 | DX: I74.3 Embolism and thrombosis of arteries of the lower extremities (principal); C50.312 Malignant neoplasm of lower-inner quadrant of left female breast ==

== ENCOUNTER 2018-08-18 16:22 | Emergency (ER) | payer MEDICARE, OTHER ==
[~2018-08-18] VITALS: Ht 154.9 cm; Wt 92.3 kg
[2018-08-18 16:40] VITALS: Ht 154.9 cm; Wt 92.3 kg
[2018-08-18] MEDS ORDERED: ELIQUIS2.5 MG (16:50)
[2018-08-18] MEDS ORDERED: KEPPRA250 MG (16:50)
[2018-08-18] MEDS ORDERED: MIRALAX17 GM PO (16:51)
[2018-08-18] MEDS ORDERED: HYDROCODON-ACE1 EAC7 PO (17:31)
[2018-08-18] MEDS ORDERED: CLEOCIN HCL300 MG PO (17:31)
[2018-08-18] MEDS ORDERED: NYSTATIN1 PWD TOPICAL (17:31)
[2018-08-18] MEDS ORDERED: NYSTATIN15 GM TOPICAL (17:31)
[2018-08-18 18:00] LABS: BASOPHILS 0.4 % (0-2); EOSINOPHILS 0.8 % (0-7); HEMOGLOBIN 8.3 g/dL (12-16); IMMATURE GRANULOCYTES 0.2 % (0-5); LYMPHOCYTES 18.2 % (15-50); MCH 35.2 pg (26.0-34.0); MCHC 36.1 g/dL (31.0-37.0); MCV 97.5 fL (80.0-100.0); MEAN PLATELET VOLUME 9.8 fL (7.4-10.4); MONOCYTES 14.9 % (2-11); NEUTROPHILS 65.5 % (40-80); RBC 2.36 10x6/uL (4.00-5.40); RDW 18.8 % (11.5-14.5); WBC 4.9 10x3/uL (4.8-10.8)
[2018-08-18 18:12] LABS: ANION GAP 11.6 mmol/L (8-16); CALCIUM 8.6 mg/dL (8.5-10.1); CARBON DIOXIDE 29.6 mmol/L (21.0-32.0); CREATININE - SERUM 1.2 mg/dL (0.6-1.3); POTASSIUM - SERUM 4.2 mmol/L (3.5-5.1)
[2018-08-18 18:15] LABS: PLATELET COUNT 524 10x3/uL (130-400)
[2018-08-18 19:01] LABS: APTT 29.3 SECONDS (22.8-39.4); INR 1.06 (0.85-1.17); PROTIME 13.3 SECONDS (11.6-15.0)
[2018-08-18 20:17] VITALS: BP 110/57
== END 2018-08-18 20:17 | disposition home or self-care (01) ==
LOC: D.ER 16:22
PROVIDERS: Family Medicine
DX: L01.00 Impetigo, unspecified (principal); D64.9 Anemia, unspecified

== ENCOUNTER 2019-05-11 11:08 | Emergency (ER) | payer MEDICARE, OTHER ==
[~2019-05-11] VITALS: Ht 154.9 cm; Wt 87.3 kg
[~2019-05-11 11:08] MED LIST changes: +CLEOCIN HCL300 MG PO; +ELIQUIS2.5 MG; +FAMOTIDINE10 MG PO; +HYDROCODON-ACE1 EAC7 PO; +KEPPRA250 MG; +NYSTATIN1 PWD TOPICAL; +NYSTATIN15 GM TOPICAL; -PEPCID20 MG PO
[2019-05-11 11:16] VITALS: Ht 154.9 cm; Wt 87.3 kg
[2019-05-11] MEDS ORDERED: MORPHINE SULFAT15 M4 PO ×2 (11:21)
[2019-05-11 12:22] LABS: BASOPHILS 0 % (0-2); EOSINOPHILS 1.4 % (0-7); HEMATOCRIT 40.6 % (36.0-48.0); HEMOGLOBIN 13.2 g/dL (12-16); IMMATURE GRANULOCYTES 0.3 % (0-5); LYMPHOCYTES 16.9 % (15-50); MCH 33.8 pg (26.0-34.0); MCHC 32.5 g/dL (31.0-37.0); MCV 103.8 fL (80.0-100.0); MEAN PLATELET VOLUME 10.3 fL (7.4-10.4); MONOCYTES 11.7 % (2-11); NEUTROPHILS 69.7 % (40-80); RBC 3.91 10x6/uL (4.00-5.40); RDW 16.7 % (11.5-14.5); WBC 7.2 10x3/uL (4.8-10.8)
[2019-05-11 12:26] LABS: PLATELET COUNT 261 10x3/uL (130-400)
[2019-05-11 12:30] LABS: CALC OSMOLALITY 275 mosm/kg (275-300); CALCIUM 9.5 mg/dL (8.5-10.1); CARBON DIOXIDE 30.5 mmol/L (21.0-32.0); CHLORIDE - SERUM 101 mmol/L (98-107); CREATININE - SERUM 0.9 mg/dL (0.6-1.3); GLUCOSE 173 mg/dL (74-106); SODIUM 135 mmol/L (136-145); UREA NITROGEN 18 mg/dL (7-18); eGFR NON AFRICAN AMERICAN 63 mL/min (90-120)
[2019-05-11 12:47] LABS: ALBUMIN 3.3 g/dL (3.4-5.0); ALKALINE PHOSPHATASE 84 U/L (46-116); ALT (SGPT) 22 U/L (10-68); BILIRUBIN - TOTAL 0.75 mg/dL (0.2-1.3); LIPASE 62 U/L (73-393); PROTEIN - SERUM 6.7 g/dL (6.4-8.2)
[2019-05-11 12:47] LABS: APTT 31.7 SECONDS (22.8-39.4); INR 1.03 (0.85-1.17)
[2019-05-11 12:48] LABS: CKMB 0.9 U/L (0.0-3.6); CREATINE KINASE 62 UL (21-215); TROPONIN-I < 0.017 ng/mL (0.000-0.060)
[2019-05-11 14:00] VITALS: BP 121/74
== END 2019-05-11 14:02 | disposition home or self-care (01) ==
LOC: D.ER 11:08
PROVIDERS: Family Medicine
DX: R10.9 Unspecified abdominal pain (principal); G89.29 Other chronic pain; E11.9 Type 2 diabetes mellitus without complications; I10 Essential (primary) hypertension; I11.0 Hypertensive heart disease with heart failure; I50.9 Heart failure, unspecified; E07.9 Disorder of thyroid, unspecified; F03.90 Unspecified dementia, unspecified severity, without behavioral disturbance, psychotic disturbance, mood disturbance, and anxiety

== ENCOUNTER → 2019-10-13 17:28 | Outpatient (CLI) | payer MEDICARE, OTHER ==
[2019-05-11 11:16] VITALS: BMI 36.3
[~2019-10-13 17:28] MED LIST changes: +MORPHINE SULFAT15 M4 PO
== END | disposition home or self-care (01) ==
LOC: D.LABREF 17:28
PROVIDERS: ATTEND Pediatrics
DX: R30.9 Painful micturition, unspecified (principal)